=== PATIENT | female | born 1940 | race Caucasian/White ===

== ENCOUNTER 2018-04-24 08:20 | Inpatient (IN) | payer OTHER, BC ==
[2018-03-28 11:43] VITALS: BMI 27.0
--- NOTE | 2018-04-01 08:23 | History and Physical ---
History & Physical Date Apr 01, 2018. Chief Complaint Right Knee Pain History of Present Illness The patient is a 78 year old female with complaints of Right knee pain. She underwent Right total knee replacement by dr iyer January 2007 and tolerated the procedure well. She states that the symptoms have been chronic non-traumatic. No known injury, however pain for over 1yr. The symptoms occur constantly with intermittent worsening. Currently the patient states that the symptoms are severe. The pain is described as aching and throbbing. The symptoms occur continuously. The symptoms are aggravated by ascending stairs, daily activities , descending stairs, first steps while awake, weight bearing and walking. Ember states that the symptoms are relieved by no specific activity. In addition to right knee pain the patient is also experiencing decreased mobility , instability and limping. The patient has had a previous x-ray which shows anatomical alignment with no obvious losoening. Prior NSAIDs include Aleve. Pt. has an Ibuprofen Allergy which limits her NSAID use. Past Medical/Surgical History PAST MEDICAL HISTORY: 1. Thyroid goiter. 2. Acid reflux. 3. High Cholesterol 4. Asthma 5. Anxiety 6. remote smoking history, 6 cigarettes/day x 4 years, quit in 2007. PAST SURGICAL HISTORY: 1. Low back surgery. 2. Right knee surgery. 3. Sinus surgery. 4. Hernia repair. 5. Bowel resection. 6. x4. 7. Appendectomy. 8. Hysterectomy. 9. Right Total Hip replacement 02/2013 Allergies Coded Allergies: Ibuprofen (Verified Allergy, Severe, EYES, FACE, FEET SWELLED-HAS HAD TORADOL W/O PROBLEM, 03/28/18) [place] Seed (Verified Allergy, Severe, THROAT CLOSES, 03/28/18) Cephalosporins (Verified Allergy, Unknown, KEFLEX=RASH, 03/28/18) Shellfish Allergy (Verified Allergy, Unknown, ITCHING, 03/28/18) Shrimp (Verified Allergy, Unknown, LIPS SWELLING SOB, 03/28/18) Codeine (Verified Adverse Reaction, Unknown, N/V, DIZZY, 03/28/18) Hydrocodone (Verified Adverse Reaction, Unknown, N/V, DIZZY, 03/28/18) Quinolones (Verified Adverse Reaction, Unknown, SHOOK ALL OVER (AVELOX) AND HEADACHE, 03/28/18) AVELOX Home Medications Scheduled Atorvastatin (Lipitor), 10 MG PO QPM Cholecalciferol (Vitamin D3), 1 TAB PO PRN Cyclobenzaprine Hcl (Flexeril), 10 MG PO PRN Cyclosporine (Ophth) (Restasis), 1 DROP OP BID Docusate Sodium (Colace), 1 CAP PO HS Esomeprazole Magnesium (Nexium), 40 MG PO QAM Latanoprost (Xalatan 0.005% Oph Caren), 1 DROPS OP HS Naproxen (Aleve), 220 MG PO PRN Paroxetine (Paxil), 20 MG PO QAM Polyethylene Glycol 3350 (Miralax), 1-2 SCOOPS PO 2-3XWEEK Scheduled PRN Albuterol Hfa (Ventolin Hfa), 2 PUFFS INH Q6H PRN for PRN Alprazolam (Xanax), 1 MG PO PRN PRN for ANXIETY Cetirizine/Pseudoephedrine (Zyrtec-D Er 5MG/120MG), 1 TAB PO Q12H PRN Fluticasone Propionate (Nasal) (Flonase Allergy Relief), 1-2 SPRAYS INTNAS BID PRN for RN Physical Examination Skin: warm/dry, no rash Eyes: normal inspection, EOMI, sclerae normal ENT: normal ENT inspection, pharynx normal Head: normocephalic, atraumatic Neck: supple, no adenopathy, trachea midline Respiratory/Chest: lungs clear, normal breath sounds, no respiratory distress Cardiovascular: regular rate, rhythm, no edema, + systolic murmur (Grade II/ systolic ejection murmur) Abdomen / GI: normal bowel sounds, non tender Addiitonal Comments: Right Knee Exam: Physical Exam Exam Findings Details Knee ROM L * Active ROM - Flexion: 120 degrees, Extension: 0 degrees, Factors: normal, Description: active pain free range of motion. Passive ROM - Factors: normal, Description: passive pain free range of motion. Knee ROM R * Active ROM - Flexion: 115 degrees, Extension: 0 degrees, Factors: normal, Description: active pain with range of motion. Passive ROM - Factors: normal, Description: passive pain free range of motion. Strength LE Normal Strength Description - Normal lower extremity: Bilateral. Constitutional Normal No acute distress. Well nourished. Well developed. Knee * Inspection - Gait: normal. Alignment - Right: neutral, Left: neutral. Ecchymosis - Right: none, Left: none. Effusion - Right: negative, Left: negative. Skin - Right: surgical scars, Left: surgical scars. Swelling - Right: mild, Left: mild. Flexibility - Right: normal, Left: normal. Maximum tenderness - Right: diffuse, greatest over medial compartment, Left: non-tender. Patella exam - Crepitation - Right: negative, Left: negative. Patella position - Right: neutral, Left: neutral. Tilt - Right: normal, Left: normal. Knee Normal Inspection - Atrophy - Right: Absent, Left: Absent. Patella exam - Apprehension - Right: Negative, Left: Negative. Valgus stress - Right: Negative , Left: Negative. Varus stress - Right: Negative, Left: Negative. Extensor lag - Right: Normal, Left: Normal. Neurovascular LE Normal Neurovascular examination including reflexes, sensation , and pulses is within normal limits. Right Knee X-Ray: Radiographs reveal a cemented total knee replacement arthroplasty in acceptable position and alignment. No evidence of loosening or loss of fixation is noted. The patella is tracking well. ASSESSMENT: status post cemented posterior stabilized total knee replacement arthroplasty. Diagnosis Painful Right Total Knee Replacement Past medical history as outlined above. Plan of Treatment Further care discussed with patient and at this point in time has failed conservative measures and would like to proceed with Right total knee possible poly change vs possible revision right total knee replacement. patient will undergo routine lab testing including ESR, CRP and bone scan. Patient did not demonstrate much in the way of knee effusion today and therefore aspiration was not performed. Plan on discharge will be home with home health physical therapy. DVT prophalaxis with TEDs, SCDs and will also place on aspirin 81 mg p.o.b.i.d. for a month postop. Patient will have follow up appointment in our office two weeks post op for staple/suture removal and re-evaluation. Patient otherwise has no other questions or concerns.
--- NOTE | 2018-04-01 11:30 | PAT Medication Instructions ---
Service Date Apr 01, 2018. Current Home Medication List Albuterol Hfa (Ventolin Hfa), 2 PUFFS INH Q6H PRN for PRN Alprazolam (Xanax), 1 MG PO PRN PRN for ANXIETY Atorvastatin (Lipitor), 10 MG PO QPM Cetirizine/Pseudoephedrine (Zyrtec-D Er 5MG/120MG), 1 TAB PO Q12H PRN Cholecalciferol (Vitamin D3), 1 TAB PO PRN Cyclobenzaprine Hcl (Flexeril), 10 MG PO PRN Cyclosporine (Ophth) (Restasis), 1 DROP OP BID Docusate Sodium (Colace), 1 CAP PO HS Esomeprazole Magnesium (Nexium), 40 MG PO QAM Fluticasone Propionate (Nasal) (Flonase Allergy Relief), 1-2 SPRAYS INTNAS BID PRN for RN Latanoprost (Xalatan 0.005% Oph Caren), 1 DROPS OP HS Naproxen (Aleve), 220 MG PO PRN Paroxetine (Paxil), 20 MG PO QAM Polyethylene Glycol 3350 (Miralax), 1-2 SCOOPS PO 2-3XWEEK Medication Instructions For Your Scheduled Surgery - Check with surgeon for instructions: Naproxen (Aleve), 220 MG PO PRN - Hold the following medications the morning of surgery: Cetirizine/Pseudoephedrine (Zyrtec-D Er 5MG/120MG), 1 TAB PO Q12H PRN Cholecalciferol (Vitamin D3), 1 TAB PO PRN Cyclobenzaprine Hcl (Flexeril), 10 MG PO PRN Polyethylene Glycol 3350 (Miralax), 1-2 SCOOPS PO 2-3XWEEK - Take the following medications the morning of surgery with a sip of water: Paroxetine (Paxil), 20 MG PO QAM Esomeprazole Magnesium (Nexium), 40 MG PO QAM Fluticasone Propionate (Nasal) (Flonase Allergy Relief), 1-2 SPRAYS INTNAS BID PRN for RN (if needed) Cyclosporine (Ophth) (Restasis), 1 DROP OP BID Albuterol Hfa (Ventolin Hfa), 2 PUFFS INH Q6H PRN for PRN (if needed) Alprazolam (Xanax), 1 MG PO PRN PRN for ANXIETY (if needed) - Take the following medications as scheduled the night before surgery: Polyethylene Glycol 3350 (Miralax), 1-2 SCOOPS PO 2-3XWEEK Latanoprost (Xalatan 0.005% Oph Caren), 1 DROPS OP HS Fluticasone Propionate (Nasal) (Flonase Allergy Relief), 1-2 SPRAYS INTNAS BID PRN for RN (if needed) Docusate Sodium (Colace), 1 CAP PO HS Cyclosporine (Ophth) (Restasis), 1 DROP OP BID Cyclobenzaprine Hcl (Flexeril), 10 MG PO PRN (if needed) Cholecalciferol (Vitamin D3), 1 TAB PO PRN (if needed) Cetirizine/Pseudoephedrine (Zyrtec-D Er 5MG/120MG), 1 TAB PO Q12H PRN (if needed ) Atorvastatin (Lipitor), 10 MG PO QPM Albuterol Hfa (Ventolin Hfa), 2 PUFFS INH Q6H PRN for PRN (if needed) Alprazolam (Xanax), 1 MG PO PRN PRN for ANXIETY (if needed) If you have any questions please call us at [phone] or [phone] or [phone]
[~2018-04-24] VITALS: Ht 154.9 cm; Wt 68.3 kg
[2018-04-24] VITALS (9 sets, daily range): BP systolic 143–172; BP diastolic 69–89; PULSE 57–70; TEMP 36.5–37.2; O2SAT 94–100; Ht 154.9 cm; Wt 68.3 kg
[2018-04-24] MEDS: TRANEXAMIC ACID INJ 1,000 MG x 2 Bags IV SCH ×4 (06:30→12:04)
[~2018-04-24 08:20] MED LIST: ACETAMINOPHEN 500 MG TAB PO SCH; ALPR-411 PO; ATOR10TA82 PO; CEFAZOLIN 1000MG IV PUSH 7.5 ML IV SCH; CETITAB27 PO; CHOL1000 PO; CLINDAMYCIN 600 MG/54 ML D5W IV SCH; CYCL0.052 OP; CYCL10TA6 PO; CeleBREX 200 MG CAP PO SCH; DOCU-94 PO; FLUT0.15 INTNAS; GABAPENTIN 300 MG CAP PO SCH; LACTATED RINGER'S 1000ML 1,000 ML IV SCH; LACTATED RINGER'S 1000ML 500 ML IV SCH; LATA0.009 OP; NAPR1TAB9 PO; NXM/40 PO; PARO1TAB27 PO; POLY335025 PO; ROPIVACAINE 5MG/ML 30 ML 150 MG, BUPIVACAINE 0.5% MPF INJ 30 ML, EpINEphrine HCL INJ 0.... INFIL SCH; VNTHFA/IN INH
[2018-04-24] MEDS ORDERED: BUPIVACAINE 0.25% 30 ML VIAL ONE (08:55)
[2018-04-24] MEDS ORDERED: BUPIVACAINE 0.5 % 5 MG/1 ML PF 10ML VIAL ONE (08:55)
[2018-04-24] MEDS ORDERED: OXYC1CAP5 PO (09:07)
[2018-04-24] MEDS ORDERED: ROPIVACAINE 0.5% 5 MG/ML 30 ML VIAL ONE (10:33)
--- NOTE | 2018-04-24 11:19 | History & Physical Bridge Note ---
H&P Re-Evaluation Bridge Note: I have examined the patient, reviewed the History & Physical and in the interval since the performance of the History & Physical I have noted the following changes of clinical significance: No changes noted
[2018-04-24] MEDS ORDERED: CLINDAMYCIN 600 MG/54 ML D5W IV ONE (11:40)
[2018-04-24] MEDS ORDERED: FENTANYL CITRATE INJ 50 MCG/1 ML 2 ML VIAL ONE (11:41)
[2018-04-24] MEDS ORDERED: MIDAZOLAM HCL 1 MG/ML 2ML VIAL ONE (11:41)
[2018-04-24] MEDS ORDERED: POVIDONE-IODINE OP SOLN 30 ML BTL ONE (11:56)
[2018-04-24] MEDS ORDERED: ORTHO JOINT ANESTHETIC ONE (11:56)
[2018-04-24] MEDS ORDERED: BACITRACIN 50000 UNIT VIAL ONE (11:56)
[2018-04-24] MEDS ORDERED: EpHEDrine SULFATE INJ 50 MG/ML AMP IV PRN (12:30)
[2018-04-24] MEDS ORDERED: ONDANSETRON INJ 2 MG/ML 2 ML VIAL IV PRN ×2 (12:30→14:00)
[2018-04-24] MEDS ORDERED: ATROPINE SULFATE 0.1 MG/ML 5ML SYR IV PRN (12:30)
[2018-04-24] MEDS ORDERED: PHENYLEPHRINE 100MCG/ML 5ML SYR IV PRN (12:30)
[2018-04-24] MEDS ORDERED: HYDROmorphone INJ 2 MG/ML SYR/VIAL IV PRN (12:30)
--- NOTE | 2018-04-24 13:16 | [facility] Post Operative Brief Note ---
Immediate Operative Summary Operative Date Apr 24, 2018. Pre-Operative Diagnosis Painful Right Total Knee Replacement Post-Operative Diagnosis Same as preop Procedure(s) Performed Right Knee [place] Triathlon Poly changed to 11 x 4 and revision patella to a 32 oval patella patella Surgeon Dr. August [employer] Specialist Surgeon(s) Jose Luis Nassar PA-C Estimated Blood Loss 10 ml Findings Consistent with Post-Op Diagnosis Specimens A. Explanted Hardware Anesthesia Type MAC Spinal Regional Complication(s) none Disposition Disposition: Recovery Room / PACU
--- NOTE | 2018-04-24 13:19 | [facility] Operative Report ---
Operative Report Operative Date Apr 24, 2018. Pre-Operative Diagnosis Painful Right Total Knee Replacement Post-Operative Diagnosis Same as preop Procedure(s) Performed Right Knee [place] Triathlon Poly changed to 11 x 4 and revision patella to a 32 oval patella patella Surgeon Dr. August Mine Shifter Surgeon(s) Jose Luis Nassar PA-C Estimated Blood Loss 10 ml Findings Patient presents with painful right total knee with laxity medial lateral collateral ligaments with poly-wear no evidence of obvious loosening of the tibia or femur on radiographs or on bone scan no signs of any type of infectious or inflammatory issues at the time of surgery patient is also noted to have somewhat overstuffed patella which was revised to a 32 oval and probably was changed to 11 x 4 gave excellent stability in flexion extension with flexion Specimens A. Explanted Hardware Anesthesia Type MAC Spinal Regional Complication(s) none Disposition Recovery Room / PACU Indications Patient presents with persistently painful over the last year right total knee from approximately 12 years prior patient had no symptoms until recently when she started feeling her knee felt loose to her clinical examination preoperatively revealed to be evidence of medial lateral collateral ligament laxity that had been a progressive over the last year x-ray as well as bone scan revealed no evidence of loosening of the components nor nor is loosening visualized at the time of the surgery and evidence of ostial lysis was noted. Description of Procedure After proper prepping draping the right lower extremity incision made in the region of the previous extensor midline incision the medial parapatellar incision made the patella was everted lateralward with a synovectomy tricompartmentally was performed the Amena was removed to be evidence of laxity probably the polio was then subsequently trialed was upsized to an 11 x 40 of excellent stability in both flexion and extension mid flexion no evidence of instability was noted the patella was evaluators somewhere to the patellar Isabela as well the nadia was subsequently removed the patella was recut and resized with 32 oh gave excellent tracking with approximately 2 mm thinner patella of the wounds irrigated with copious amounts of sterile saline solution meticulous hemostasis was obtained and maintained subsequently the 11 x 4 Isabela was placed the oval 32 eccentric patella was placed the cemented of the medial proptosis closed #1 Vicryl subcu was closed with 2-0 Vicryl skin was closed with subcutaneous and Versalok suture the patient sterile compressive dressing placed was taken to the recovery room in stable condition Jose Luis PATTERSON was necessary for prepping draping traction wound closure of the fascia subcu and skin was necessary for the case I attest to the content of the Intraoperative Record and any orders documented therein. Any exceptions are noted below.
[2018-04-24] MEDS ORDERED: PROPOFOL IV EMULSION 10 MG/ML 20 ML VIAL ONE (13:49)
[2018-04-24] MEDS ORDERED: BISACODYL 10 MG SUPP PR PRN (14:00)
[2018-04-24] MEDS ORDERED: KETOROLAC TROMETHAMINE 15 MG/ML VIAL IV. PRN (14:00)
[2018-04-24] MEDS ORDERED: ALPRAZOLAM 0.5 MG TAB PO PRN (14:00)
[2018-04-24] MEDS ORDERED: FLUTICASONE PROPIONATE NA SPR 16 GM BTL PRN (14:00)
[2018-04-24] MEDS ORDERED: CYCLOBENZAPRINE HCL 10 MG TAB PO PRN (14:00)
[2018-04-24] MEDS ORDERED: MAGNESIUM HYDROXIDE SUSP 30 ML UDC PO PRN (14:00)
[2018-04-24] MEDS ORDERED: SOD PHOSPHATE/SOD BIPHOSPHATE ENEMA 132 ML BTL PR PRN (14:00)
[2018-04-24] MEDS ORDERED: ZOLPIDEM TARTRATE 5 MG TAB PO PRN (14:00)
[2018-04-24] MEDS ORDERED: MoRPHine SULFATE 4 MG/ML 1 ML CARP\\VIAL IV PRN (14:00)
[2018-04-24] MEDS ORDERED: ALBUTEROL HFA 8 GM INHALER INH PRN (14:00)
[2018-04-24] MEDS ORDERED: ALUMINUM/MAGNESIUM/SIMETH (MAALOX MAX) 30 ML UDC PO PRN (14:00)
--- NOTE | 2018-04-24 14:21 | Anesthesiology Progress Note ---
Anesthesia Post Op Note Date & Time Apr 24, 2018 at 14:21 Vital Signs Pain Intensity: 0 Vital Signs Past 12 Hours Date Time Temp Pulse Resp B/P (MAP) Pulse Ox O2 Delivery O2 Flow Rate FiO2 04/24/18 14:13 67 16 100 04/24/18 14:13 68 16 04/24/18 14:12 138/59 04/24/18 14:08 65 15 98 04/24/18 14:08 66 15 04/24/18 14:06 140/60 04/24/18 14:03 67 14 99 04/24/18 14:03 68 14 04/24/18 14:01 130/59 04/24/18 13:58 78 17 91 04/24/18 13:58 78 17 04/24/18 13:56 130/58 04/24/18 13:54 141/62 04/24/18 13:53 36.9 76 20 141/62 95 Oxymask 5 04/24/18 09:10 36.6 70 16 172/89 Notes Mental Status: alert / awake / arousable, participated in evaluation Pt Amnestic to Procedure: Yes Nausea / Vomiting: adequately controlled Pain: adequately controlled Airway Patency, RR, SpO2: stable & adequate BP & HR: stable & adequate Hydration State: stable & adequate Anesthetic Complications: no major complications apparent
--- NOTE | 2018-04-24 14:25 | DIAGNOSTIC IMAGING REPORT ---
R KNEE 1 OR 2 VIEWS ROUTINE HISTORY: 78 years-old Female AP/LATERAL IN PACU RIGHT KNEE right knee total joint arthroplasty. History of degenerative joint disease. COMPARISON: Bilateral knee radiographs 02/26/2018 TECHNIQUE: 2 views of the right knee FINDINGS: Right knee total joint arthroplasty with prior patellar resurfacing. Bones appear at least mildly demineralized. Surgical drain is in place with expected postsurgical soft tissue swelling and deep tissue air. Satisfactory alignment without acute fracture or retained foreign body. IMPRESSION: Right knee total joint arthroplasty with satisfactory alignment. The above report was generated using voice recognition software. It may contain grammatical, syntax or spelling errors. Electronically signed by: Colt Virk M.D. 04/24/2018 2:24 PM Dictated Date/Time: 04/24/2018 2:22 PM
[2018-04-24] MEDS ORDERED: MoRPHine SULFATE 10 MG/ML CARP/VIAL IV PRN (15:00)
[2018-04-24] MEDS: RESTASIS-ORDER AWAITING ACTION SCH ×2 (16:00→23:41)
[2018-04-24] MEDS: ACETAMINOPHEN 500 MG TAB PO SCH ×2 (16:08→21:55)
[2018-04-24] MEDS: D5W AND 1/2NSS + 20MEQ KCL 1,000 ML IV SCH (17:47)
[2018-04-24] MEDS: CLINDAMYCIN IV 600 MG in DEXTROSE 5% 50ML 50 ML IV SCH (19:50)
[2018-04-24] MEDS ORDERED: CeleBREX 200 MG CAP PO SCH (21:00)
[2018-04-24] MEDS ORDERED: DOCUSATE SODIUM 100 MG CAP PO SCH (21:00)
[2018-04-24] MEDS ORDERED: SENNA 8.6 MG TAB PO SCH (21:00)
[2018-04-24] MEDS ORDERED: ATORVASTATIN 10 MG TAB PO SCH (21:00)
[2018-04-24] MEDS ORDERED: LATANOPROST 0.005% OP SOLN 2.5 ML BTL OP SCH (21:00)
[2018-04-24] MEDS: DOCUSATE SODIUM 100 MG CAP PO SCH (21:53)
[2018-04-24] MEDS: ASPIRIN 81 MG ECTAB PO SCH (21:55)
[2018-04-25] MEDS: D5W AND 1/2NSS + 20MEQ KCL 1,000 ML IV SCH ×2 (03:06→11:00)
[2018-04-25] MEDS: CLINDAMYCIN IV 600 MG in DEXTROSE 5% 50ML 50 ML IV SCH (03:06)
[2018-04-25 04:12] VITALS: BP 138/73; PULSE 54; TEMP 36.8; O2SAT 97
[2018-04-25] MEDS: ACETAMINOPHEN 500 MG TAB PO SCH ×2 (05:46→13:39)
[2018-04-25 06:05] LABS: HEMATOCRIT 28.9 % (37-47); HEMOGLOBIN 9.7 g/dL (12.0-16.0); MEAN CELL VOLUME 93.5 fL (80-100); MEAN CORPUSCULAR HEMOGLOBIN 31.4 pg (25-34); MEAN CORPUSCULAR HGB CONC 33.6 g/dl (32-36); MEAN PLATELET VOLUME 9.9 fL (7.4-10.4); PLATELET COUNT 276 K/uL (130-400); RED CELL DISTRIBUTION WIDTH CV 13.1 % (11.5-14.5); RED CELL DISTRIBUTION WIDTH SD 44.4 fL (36.4-46.3); WHITE BLOOD COUNT 16.16 K/uL (4.8-10.8)
[2018-04-25 06:43] LABS: CALCIUM 7.7 mg/dl (8.5-10.1); CREATININE 1.1 mg/dl (0.60-1.20); POTASSIUM 4.4 mmol/L (3.5-5.1)
--- NOTE | 2018-04-25 07:49 | Orthopedic Progress Note ---
Orthopedic Progress Note Date of Service Apr 25, 2018. Subjective Post OP Day: 1 Reports: feeling well Objective N/V intact, dressing C/D/I (Hemovac in place), toes mobile Date Time Temp Pulse Resp B/P (MAP) Pulse Ox O2 Delivery O2 Flow Rate FiO2 04/25/18 04:25 Room Air 04/25/18 04:12 36.8 54 18 138/73 (94) 97 Room Air 04/24/18 23:53 36.5 57 15 145/70 (95) 98 Room Air 04/24/18 19:50 Room Air 04/24/18 19:04 36.8 63 17 146/69 (94) 94 Room Air 04/24/18 17:41 37.2 68 17 143/76 (98) 95 Room Air 04/24/18 16:40 37.0 66 17 143/69 (93) 100 Nasal Cannula 2.0 04/24/18 16:30 98 Nasal Cannula 2.0 04/24/18 15:38 36.5 63 17 157/76 (103) 98 Nasal Cannula 2.0 04/24/18 15:10 36.9 59 17 147/77 (100) 99 Nasal Cannula 2.0 04/24/18 14:40 36.6 64 15 144/72 (96) 99 Nasal Cannula 2.0 04/24/18 14:40 99 Nasal Cannula 2.0 04/24/18 14:40 99 Nasal Cannula 2.0 04/24/18 14:26 144/67 04/24/18 14:25 64 15 04/24/18 14:25 63 15 99 04/24/18 14:24 64 15 04/24/18 14:24 64 15 99 04/24/18 14:22 36.9 98 Nasal Cannula 3 04/24/18 14:21 135/61 04/24/18 14:19 62 16 04/24/18 14:19 61 16 99 04/24/18 14:16 132/63 04/24/18 14:14 66 13 97 04/24/18 14:14 65 13 04/24/18 14:13 67 16 100 04/24/18 14:13 68 16 04/24/18 14:12 138/59 04/24/18 14:08 65 15 98 04/24/18 14:08 66 15 04/24/18 14:06 140/60 04/24/18 14:03 67 14 99 04/24/18 14:03 68 14 04/24/18 14:01 130/59 04/24/18 13:58 78 17 91 04/24/18 13:58 78 17 04/24/18 13:56 130/58 04/24/18 13:54 141/62 04/24/18 13:53 36.9 76 20 141/62 95 Oxymask 5 04/24/18 09:10 36.6 70 16 172/89 Laboratory Results 24 Hours: Test 04/25/18 05:48 Hematocrit 28.9 % Hemoglobin 9.7 g/dL Prothromb Time International Ratio 1.0 Prothrombin Time 10.4 SECONDS Assessment & Plan Assessment: 78 yo female stable POD #1 s/p right TKA poly change and patella revision Plan: 1. Med management 2. DVT prophylaxis- ASA, SCDs 3. PT/OT 4. D/C planning- home w/ HH vs OPPT
--- NOTE | 2018-04-25 07:51 | Discharge Instructions ---
Discharge Instructions Date of Service Apr 25, 2018. Admission Reason for Admission: Right Knee Osteoarthritis Discharge Discharge Diagnosis / Problem: Painful right TKA Discharge Goals Goal(s): Decrease discomfort, Improve function Activity Recommendations Activity Limitations: as noted below Weightbearing Status: Right weightbearing (as tolerated) . Instructions / Follow-Up Instructions / Follow-Up ACTIVITY RECOMMENDATIONS: SELF CARE INSTRUCTIONS AFTER TOTAL KNEE REPLACEMENT A. You may need to continue a physical therapy program after discharge from the hospital. There are several options available to you. Your doctor will assist you in selecting the best one for you. 1. An out-patient facility 2 to 3 times a week for therapy or home therapy. 2. Continue working on all exercises taught to you in the hospital. Your goals should be to increase bending of your knee to 90 degrees and beyond and to fully straighten your knee. B. You may progress at your own pace from walking with a walker or crutches to a cane; then to no assistive devices. C. Make walking a part of your daily routine. Be up as much as comfortable with rest periods throughout the day. Rest with leg elevation is very important. Use the ice wrap frequently for the first 3-4 weeks. D. There are no restrictions on activities. You may ride in a car, shop, participate in poultry boner and all social activities. E. Wear the long elastic stockings (SUKHJINDER hose) 20 hours a day for 2 weeks after surgery. They can be removed several times a day for laundering and for a bath. F. You may shower, no tub baths until cleared by your doctor. SPECIAL CARE INSTRUCTIONS: VERY IMPORTANT TO READ AND REVIEW A. There are a few signs you need to watch for after you are home. Call [facility] if you notice any of the followin. Increased severe knee pain. Some pain is expected especially when you exercise. 2. Increased swelling in your leg or knee; pain or swelling of the calf muscle in either lower leg. 3. Any fluid drainage from the incision. 4. Shortness of breath or chest pain. B. Please call [facility] at if you have any concerns or questions about your operation or recovery. The doctor or his nurse will return your call promptly. C. You must take antibiotics before dental work, bladder, bowel or other surgery. Your doctor will provide you with a permanent care to carry describing this precaution. IMPORTANT: * REMEMBER TO TAKE ASPIRIN, 81 MG, TWICE DAILY FOR 4 WEEKS UNLESS OTHERWISE DIRECTED. THIS IS YOUR BLOOD THINNER. * HIGH RISK PATIENTS MAY BE PRESCRIBED A STRONGER BLOOD THINNER. THIS WILL BE PROVIDED AT DISCHARGE. * CALL IF INCREASED PAIN, REDNESS, DRAINAGE OR FEVER GREATER THAT 101. * WEAR SUKHJINDER HOSE 20 HOURS PER DAY FOR 2 WEEKS. * DERMABOND Prineo- This is a mesh tape dressing that is covered with glue. It should remain in place until the incision is properly healed, usually 10-14 days. This dressing is designed to naturally slough off. You may trim the excess mesh tape as it peels off. Incision may be briefly wet in a shower. Dry immediately by blotting with a clean, dry towel. Do not bath or swim until instructed by your doctor. Do not scratch, rub, or pick at the dressing. Do not apply any topical ointments or lotions until dressing is completely removed and/or instructed by your doctor. There may be a small piece of suture material at one end of your incision. Do not pull or trim this. If it is bothersome or catching on clothing, you may cover it with a band-aid. . * REMOVE YOUR JANE BANDAGE/DRESSING ON SUNDAY. SEE THE ABOVE NOTE FOR YOUR PRINEO DERMABOND DRESSING. FOLLOW UP VISIT: If appointment is not already scheduled: Please call [facility] to make a follow-up appointment for 2 weeks after your surgery at . Current Hospital Diet Patient's current hospital diet: Regular Diet Discharge Diet Recommended Diet: Regular Diet Procedures Procedures Performed: Right Knee [place] Triathlon Poly changed to 11 x 4 and revision patella to a 32 oval patella patella Pending Studies Studies pending at discharge: no Laboratory Results Hemoglobin A1c Test 04/01/18 11:45 Range/Units Estimated Average Glucose 126 mg/dl Hemoglobin A1c 6.0 H 4.5-5.6 % Medical Emergencies . Who to Call and When: Medical Emergencies: If at any time you feel your situation is an emergency, please call 911 immediately. . Non-Emergent Contact Non-Emergency issues call your: Surgeon Call Non-Emergent contact if: temperature is above 101.5, your pain is not controlled, wound has increased drainage, wound has increased redness . "Provider Documentation" section prepared by Ryder Chandra PA-C. . [facility] Drug Monitoring Program Search Results: patient reviewed within database, no issues identified
[2018-04-25 07:55] VITALS: BP_SYST 157; BP_SYST 166; BP_DIAS 70; BP_DIAS 78; PULSE 60; TEMP 36.5; O2SAT 97
[2018-04-25] MEDS: RESTASIS-ORDER AWAITING ACTION SCH (08:00)
[2018-04-25] MEDS ORDERED: PAROXETINE 20 MG TAB PO SCH (09:00)
[2018-04-25] MEDS ORDERED: MULTIVITAMIN TAB PO SCH (09:00)
[2018-04-25] MEDS ORDERED: PANTOprazole SOD 40 MG TAB PO SCH (09:00)
--- NOTE | 2018-04-25 09:01 | Anesthesiology Progress Note ---
Anesthesia Post Op Note Date & Time Apr 25, 2018 at 09:00 Vital Signs Pain Intensity: 3.0 Vital Signs Past 12 Hours Date Time Temp Pulse Resp B/P (MAP) Pulse Ox O2 Delivery O2 Flow Rate FiO2 04/25/18 07:55 36.5 60 16 166/78 (107) 97 Room Air 157/70 (99) 04/25/18 07:10 Room Air 04/25/18 04:25 Room Air 04/25/18 04:12 36.8 54 18 138/73 (94) 97 Room Air 04/24/18 23:53 36.5 57 15 145/70 (95) 98 Room Air Notes Mental Status: alert / awake / arousable, participated in evaluation Pt Amnestic to Procedure: Yes Nausea / Vomiting: adequately controlled Pain: adequately controlled Airway Patency, RR, SpO2: stable & adequate BP & HR: stable & adequate Hydration State: stable & adequate Neuraxial Anesthesia: sensory block resolved Anesthetic Complications: no major complications apparent
[2018-04-25] MEDS: DOCUSATE SODIUM 100 MG CAP PO SCH (09:07)
[2018-04-25] MEDS: ASPIRIN 81 MG ECTAB PO SCH (09:08)
[2018-04-25 11:54] VITALS: BP 129/70; PULSE 69; TEMP 37.1; O2SAT 99
[2018-04-25] MEDS: OXYCODONE HCL IR 5 MG TAB (IMMEDIATE RELEASE) PO PRN ×2 (11:57→12:47)
[2018-04-25] MEDS ORDERED: CLB200 PO (14:13)
[2018-04-25] MEDS ORDERED: RXC5 PO (14:13)
[2018-04-25] MEDS ORDERED: ASPI-461 PO (14:13)
[2018-04-25] MEDS ORDERED: ACET-24 PO (14:13)
[2018-04-25 14:19] VITALS: BP 129/70; PULSE 69; TEMP 37.1; O2SAT 99
--- NOTE | 2018-04-26 07:10 | Discharge Summary ---
Orthopedic Discharge Summary Admission Date/Reason Apr 24, 2018 at 08:35 Right Knee Osteoarthritis. Discharge Date/Disposition Apr 25, 2018 Home with services Diagnosis Principal Diagnosis: painful right total knee replacement Secondary Diagnoses/Problems: Past Medical/Surgical History PAST MEDICAL HISTORY: 1. Thyroid goiter. 2. Acid reflux. 3. High Cholesterol 4. Asthma 5. Anxiety 6. remote smoking history, 6 cigarettes/day x 4 years, quit in 2007. Procedure(s) Performed Right Knee Tammie Triathlon Poly changed to 11 x 4 and revision patella to a 32 oval patella patella Consultations NONE Medication Reconciliation New Medications: Acetaminophen (Sb Non-Aspirin Extra Stre) 500 Mg Tab 1000 MG PO Q8 for 21 Days, #126 TAB Aspirin (Aspirin) 81 Mg Tab 81 MG PO BID for 30 Days, #60 TAB Celecoxib (Celebrex) 200 Mg Cap 200 MG PO BID, #30 CAP Oxycodone HCl (Oxycodone HCl) 5 Mg Tab 5 MG PO Q4H PRN for Pain, #30 TAB Continued Medications: Albuterol Hfa (Ventolin Hfa) 200 Puffs/34309 Mcg Aers 2 PUFFS INH Q6H PRN for PRN, #1 INHALER Alprazolam (Xanax) 0.5 Mg Tab 1 MG PO PRN PRN for ANXIETY, TAB Atorvastatin (Lipitor) 10 Mg Tab 10 MG PO QPM Cetirizine/Pseudoephedrine (Zyrtec-D Er 5MG/120MG) Tabcr 1 TAB PO Q12H PRN, TAB Cyclobenzaprine Hcl (Flexeril) 10 Mg Tab 10 MG PO PRN, #21 TAB Cyclosporine (Ophth) (Restasis) 0.05 % Emu 1 DROP OP BID, BTL Docusate Sodium (Colace) 100 Mg Cap 1 CAP PO HS for 30 Days, CAP Esomeprazole Magnesium (Nexium) 40 Mg Capcr 40 MG PO QAM, 0 Refills Fluticasone Propionate (Nasal) (Flonase Allergy Relief) 50 Mcg/Act Spr 1-2 SPRAYS INTNAS BID PRN for RN Latanoprost (Xalatan 0.005% Oph Caren) 0.005 % Caren 1 DROPS OP HS for 90 Days, #7.5 ML 3 Refills Paroxetine (Paxil) 20 Mg Tab 20 MG PO QAM, TAB Polyethylene Glycol 3350 (Miralax) 1 Pow Pow 1-2 SCOOPS PO 2-3XWEEK Discontinued Medications: Naproxen (Aleve) 220 Mg Tab 220 MG PO PRN, TAB Oxycodone Hcl (Oxycodone Hcl) 5 Mg Cap 1 CAP PO TID PRN for Pain for 30 Days, #90 CAP Admission Physical Exam As per Admitting History & Physical. Hospital Course Patient was a same day admission after undergoing a successful right knee poly exchange and patella revision. she tolerated the procedure well. Post- operatively, her activity was progressed and well tolerated. Please refer to daily progress notes and PT notes for complete details. After exam on 04/25/18, patient felt to be stable for discharge home with home PT. Patient will f/u in the office in 2 weeks for further evaluation including x-rays and incision check , sooner if having any issues or concerns. Below are pertinent labs/studies during their hospital stay: Test 04/25/18 05:48 Range/Units White Blood Count 16.16 4.8-10.8 K/uL Red Blood Count 3.09 4.2-5.4 M/uL Hemoglobin 9.7 12.0-16.0 g/dL Hematocrit 28.9 37-47 % Mean Corpuscular Volume 93.5 80-100 fL Mean Corpuscular Hemoglobin 31.4 25-34 pg Mean Corpuscular Hemoglobin Concent 33.6 32-36 g/dl RDW Standard Deviation 44.4 36.4-46.3 fL RDW Coefficient of Variation 13.1 11.5-14.5 % Platelet Count 276 130-400 K/uL Mean Platelet Volume 9.9 7.4-10.4 fL Prothrombin Time 10.4 9.0-12.0 SECONDS Prothromb Time International Ratio 1.0 0.9-1.1 Sodium Level 131 136-145 mmol/L Potassium Level 4.4 3.5-5.1 mmol/L Chloride Level 102 98-107 mmol/L Carbon Dioxide Level 23 21-32 mmol/L Anion Gap 6.0 3-11 mmol/L Blood Urea Nitrogen 17 7-18 mg/dl Creatinine 1.10 0.60-1.20 mg/dl Est Creatinine Clear Calc Drug Dose 37.2 ml/min Estimated GFR () 55.7 Estimated GFR (Non- 48.1 BUN/Creatinine Ratio 15.4 10-20 Random Glucose 144 70-99 mg/dl Calcium Level 7.7 8.5-10.1 mg/dl Last Vital Signs Documentation Date Time Temp Pulse Resp B/P (MAP) Pulse Ox O2 Delivery O2 Flow Rate FiO2 04/25/18 14:19 37.1 69 16 99 Room Air 04/25/18 11:54 129/70 (89) 04/24/18 16:40 2.0 Discharge Instructions Please refer to the electronic Patient Visit Report (Discharge Instructions) for additional information.
== END 2018-04-25 15:20 | disposition home health service (06) | DRG 468 ==
LOC: C.ACU 08:20 → C.3E 08:35 → ENRESERV 14:17
PROVIDERS: ADMIT Orthopaedic Surgery; ATTEND Orthopaedic Surgery
PROC: 0SWC0JC Revision of Synthetic Substitute in Right Knee Joint, Patellar Surface, Open Approach (ICD-10-PCS; principal; 2018-04-24 11:00)
PROC: 0SW Lower Joints, Revision (ICD-10-PCS; principal; 2018-04-24 11:00)
DX: T84.84XA Pain due to internal orthopedic prosthetic devices, implants and grafts, initial encounter (principal); Y83.1 Surgical operation with implant of artificial internal device as the cause of abnormal reaction of the patient, or of later complication, without mention of misadventure at the time of the procedure; Z96.651 Presence of right artificial knee joint; K21.9 Gastro-esophageal reflux disease without esophagitis; E78.00 Pure hypercholesterolemia, unspecified; F41.9 Anxiety disorder, unspecified; J45.909 Unspecified asthma, uncomplicated; H40.9 Unspecified glaucoma; Z87.891 Personal history of nicotine dependence; Z96.641 Presence of right artificial hip joint; Z79.899 Other long term (current) drug therapy; Z88.1 Allergy status to other antibiotic agents; Z88.5 Allergy status to narcotic agent; Z88.6 Allergy status to analgesic agent; Z91.013 Allergy to seafood; Z91.018 Allergy to other foods

== ENCOUNTER 2018-12-03 06:14 | Inpatient (IN) ==
--- NOTE | 2018-11-08 13:59 | History & Physical Report ---
Date of Service November 08, 2018 Date of Surgery: 12-03-18 Assessment & Plan (1) Arthritis of knee, left: Risks and benefits of procedure discussed in detail today, patient would like to proceed with a Left total knee replacement @ [facility] as scheduled. will obtain medical clearance prior to surgery as well as obtain PATs at [facility]. Will place on ASA 81mg po bid x 1 month post op, f/u 2 weeks post op for routine post -operative care and xray, sooner if having any problems. will make arrangements for [facility] PT at the time of discharge. History of Present Illness Chief Complaint: left knee pain Primary Care Provider: Akshat Moses Ms Inman is a 78 year old female who is here for a follow up of left knee pain , presents for pre op evaluation prior to left total knee replacement. She complains of pain, crepitus and instability on the left side. Patient is here today for pre-op appt for left TKA for 12/03/[address] August at [facility]. Patient' s PCP is Dr. Moses. She has a walker at home. She has cortisone and visco injections. She is taking OTC pain medication Tylenol ES as needed. She states that the symptoms have been chronic non-traumatic. The symptoms occur intermittently. Currently the patient states that the symptoms are moderate- severe. The pain is described as aching, throbbing and burning. The symptoms occur intermittently. She rates her current pain as 7/10. The symptoms are aggravated by ascending stairs, descending stairs, daily activities, walking and weight bearing. Ember states that the symptoms are relieved by no specific activity. In addition to left knee pain the patient is also experiencing joint pain, instability and limping. Allergies Allergy/AdvReac Type Severity Reaction Status Date / Time sunflower seed Allergy Severe THROAT Verified 10/29/18 12:04 FEELS SCRATCHY Cephalosporins Allergy Unknown KEFLEX=RASH Verified 10/29/18 11:32 ibuprofen Allergy Unknown EYES, Verified 10/29/18 11:32 FACE, FEET SWELLED-HAS HAD TORADOL W/O PROBLEM shellfish derived Allergy Unknown ITCHING Verified 10/29/18 11:32 shrimp Allergy Unknown LIPS Verified 10/29/18 11:32 SWELLING SOB codeine AdvReac Unknown N/V, DIZZY Verified 10/29/18 11:32 hydrocodone AdvReac Unknown N/V, DIZZY Verified 10/29/18 11:32 Quinolones AdvReac Unknown SHOOK ALL Verified 10/29/18 12:06 OVER/SEVERE HEADACHE WITH AVELOX AND LEVAQUIN Home Medications Home Medications Medication Instructions Recorded Confirmed Type acetaminophen [Tylenol Extra 1,000 mg PO Q6H PRN 10/29/18 10/29/18 History Strength] albuterol sulfate 2 puff INHALATION Q6H PRN 10/29/18 10/29/18 History alprazolam 1 mg PO TID PRN 10/29/18 10/29/18 History celecoxib [Celebrex] 200 mg PO QPM 10/29/18 10/29/18 History cetirizine-pseudoephedrine 1 tab PO DAILY PRN 10/29/18 10/29/18 History [Zyrtec-D] cyclosporine [Restasis] 1 drp OPHTHALMIC (EYE) Q12H 10/29/18 10/29/18 History diltiazem HCl [Cardizem] 120 mg PO QAM 10/29/18 10/29/18 History docusate sodium 100 mg PO HS 10/29/18 10/29/18 History esomeprazole magnesium [Nexium] 40 mg PO QAM 10/29/18 10/29/18 History fluticasone [Flonase Allergy 2 spray INTRANASAL DAILY PRN 10/29/18 10/29/18 History Relief] latanoprost (PF) 1 drp OPHTHALMIC (EYE) HS 10/29/18 10/29/18 History paroxetine HCl 20 mg PO QAM 10/29/18 10/29/18 History polyethylene glycol 3350 [Miralax] 17 g PO DAILY PRN 10/29/18 10/29/18 History Past Med/Surg History Medical History Anxiety Asthma Bronchitis 08/2018 Cardiac murmur Depression GERD (gastroesophageal reflux disease) Glaucoma Hyperlipidemia NO MEDS AT PRESENT Hypertension Nausea and vomiting after administration of anesthetic agent Osteoarthritis Surgical History Fusion of spine L4- S1 H/O knee surgery X 2-PARTIAL REPLACEMENT AND REVISION History of arthroscopy LEFT KNEE History of bowel resection History of section X 4 History of colonoscopy History of esophagogastroduodenoscopy (EGD) History of total hip arthroplasty RIGHT FOR AVASCULAR NECROSIS Family History Aunt Family history of diabetes mellitus Mother Family history of reaction to anesthesia SLOW TO WAKE UP, LOW BLOOD PRESSURE Social History Current Living Situation: Spouse Other Information That Helps Us Care for You: No Feels Safe at Home: Yes Safety Concerns: Feels Safe At This Time Smoking Status: Current every day smoker Tobacco Type: cigarettes Cigarettes per Day: 1 PACK PER 3 DAYS Do You Dip or Chew Tobacco: No Second Hand Exposure: No Hx Alcohol Use: Yes Alcohol Intake Frequency: holidays/special occasions only Hx Substance Use: No Beliefs That Will Affect Care: None Preferred Language: Estonian Communication Ability: Effective Supervisor Dumping Required: No Review of Systems All systems reviewed & are unremarkable except as noted in HPI & below Constitutional: no fever, no chills and no sweats Respiratory: no cough and no dyspnea Cardiovascular: no chest pain, no dyspnea and no orthopnea Gastrointestinal: no abdominal pain, no nausea and no vomiting Musculoskeletal: as per Subjective / HPI Integumentary: no rash and no lesions Physical Exam 2 Vital Signs (Past 24 Hours): Ht: 5ft 1in Wt: 65.77kg BP: 148/88 Pulse: 82 Constitutional: WD/WN, vitals as above no acute distress Respiratory: normal respiratory effort, lungs clear to auscultation no respiratory distress and does not use accessory muscles Cardiovascular: Rate/Rhythm: regular rate and regular rhythm Heart Sounds: + murmur (Grade II/ systolic murmur) Gastrointestinal (Abdomen): normal bowel sounds, soft, nontender, no hepatosplenomegaly Musculoskeletal: Left Knee Physical Exam Patient ambulates with a limp, overall varus alignment, no atrophy or ecchymosis noted, mild suprapatellar effusion, maximum tenderness medial joint line and diffuse, negative patellar apprehension , mild crepitation with motion , francisca's Negative, Perez's - lateral positive, Perez's - medial positive, Posterior drawer- Negative, Anterior drawer Negative, Valgus stress Negative, Varus stress Negative, no Extensor lag, Pain with Active range of motion, also passive painful ROM, Range of motion 0/3/110. No pain with active/ passive ROM of ankle. Lower Extremity Strength normal. Lower Extremity Neuro- vascular is normal Results & Data Diagnostic Findings Left Knee X-ray dated 10-04-18: left knee series confirm advanced degenerative changes to the left knee, greatest medial compartments and patellofemoral joint, showing joint space narrowing, osteophyte formation and subchondral sclerosis. no acute bony pathology noted.
--- NOTE | 2018-11-08 15:04 | PAT Medication Instructions ---
Medication Instructions Date of Service November 08, 2018 Home Medications acetaminophen [Tylenol Extra 1,000 mg PO Q6H PRN albuterol sulfate 2 puff INHALATION Q6H PRN alprazolam 1 mg PO TID PRN celecoxib [Celebrex] 200 mg PO QPM cetirizine-pseudoephedrine 1 tab PO DAILY PRN cyclosporine [Restasis] 1 drp OPHTHALMIC (EYE) Q12H diltiazem HCl [Cardizem] 120 mg PO QAM docusate sodium 100 mg PO HS esomeprazole magnesium [Nexium] 40 mg PO QAM fluticasone [Flonase Allergy 2 spray INTRANASAL DAILY PRN latanoprost (PF) 1 drp OPHTHALMIC (EYE) HS paroxetine HCl 20 mg PO QAM polyethylene glycol 3350 [Miralax] 17 g PO DAILY PRN ASK your surgeon for instructions celecoxib [Celebrex] 200 mg PO QPM DO NOT take the morning of surgery cetirizine-pseudoephedrine 1 tab PO DAILY PRN polyethylene glycol 3350 [Miralax] 17 g PO DAILY PRN Take morning of surgery With a small sip of water, OTHERWISE NOTHING TO EAT OR DRINK AFTER MIDNIGHT: acetaminophen [Tylenol Extra 1,000 mg PO Q6H PRN (okay to take up to 4 hours prior to surgery if needed) albuterol sulfate 2 puff INHALATION Q6H PRN (use if needed; please bring with you to hospital day of surgery if possible) alprazolam 1 mg PO TID PRN (if needed) cyclosporine [Restasis] 1 drp OPHTHALMIC (EYE) Q12H diltiazem HCl [Cardizem] 120 mg PO QAM esomeprazole magnesium [Nexium] 40 mg PO QAM fluticasone [Flonase Allergy 2 spray INTRANASAL DAILY PRN (if needed) paroxetine HCl 20 mg PO QAM Take evening before surgery acetaminophen [Tylenol Extra 1,000 mg PO Q6H PRN (if needed) albuterol sulfate 2 puff INHALATION Q6H PRN (if needed) alprazolam 1 mg PO TID PRN (if needed) cetirizine-pseudoephedrine 1 tab PO DAILY PRN (if needed) cyclosporine [Restasis] 1 drp OPHTHALMIC (EYE) Q12H docusate sodium 100 mg PO HS fluticasone [Flonase Allergy 2 spray INTRANASAL DAILY PRN (if needed) latanoprost (PF) 1 drp OPHTHALMIC (EYE) HS polyethylene glycol 3350 [Miralax] 17 g PO DAILY PRN (if needed) Other Notes If you have any questions please call us at [phone] or [phone] or [phone] or [phone]
--- NOTE | 2018-11-08 15:57 | Anesthesiology Consultation ---
Date of Service November 08, 2018 Assessment & Plan (1) Encounter for pre-operative examination: Plan: CHECK BSG AM DOS Chart Review Chart Review: Acceptable Risk for Surgery and Patient seen in Pre Admission Testing Teaching & Discussion Instructed NPO after midnight before surgery, except medications with 15 cc of water. Medication instructions provided according to the PAT guidelines. History Surgery Operation Date: 12/03/18 10:05 Proposed Procedures p Left Total Knee Arthroplasty - Varghese August DO Height/Weight Height: 5 ft 1 in Weight: 73.6 kg Allergies Allergy/AdvReac Type Severity Reaction Status Date / Time sunflower seed Allergy Severe THROAT Verified 10/29/18 12:04 FEELS SCRATCHY Cephalosporins Allergy Unknown KEFLEX=RASH Verified 10/29/18 11:32 ibuprofen Allergy Unknown EYES, Verified 10/29/18 11:32 FACE, FEET SWELLED-HAS HAD TORADOL W/O PROBLEM shellfish derived Allergy Unknown ITCHING Verified 10/29/18 11:32 shrimp Allergy Unknown LIPS Verified 10/29/18 11:32 SWELLING SOB codeine AdvReac Unknown N/V, DIZZY Verified 10/29/18 11:32 hydrocodone AdvReac Unknown N/V, DIZZY Verified 10/29/18 11:32 Quinolones AdvReac Unknown SHOOK ALL Verified 10/29/18 12:06 OVER/SEVERE HEADACHE WITH AVELOX AND LEVAQUIN Medications Home Medications Medication Instructions Recorded Confirmed Last Taken acetaminophen [Tylenol Extra 1,000 mg PO Q6H PRN 10/29/18 10/29/18 Unknown Strength] albuterol sulfate 2 puff INHALATION Q6H PRN 10/29/18 10/29/18 Unknown alprazolam 1 mg PO TID PRN 10/29/18 10/29/18 Unknown celecoxib [Celebrex] 200 mg PO QPM 10/29/18 10/29/18 Unknown cetirizine-pseudoephedrine 1 tab PO DAILY PRN 10/29/18 10/29/18 Unknown [Zyrtec-D] cyclosporine [Restasis] 1 drp OPHTHALMIC (EYE) Q12H 10/29/18 10/29/18 Unknown diltiazem HCl [Cardizem] 120 mg PO QAM 10/29/18 10/29/18 Unknown docusate sodium 100 mg PO HS 10/29/18 10/29/18 Unknown esomeprazole magnesium [Nexium] 40 mg PO QAM 10/29/18 10/29/18 Unknown fluticasone [Flonase Allergy 2 spray INTRANASAL DAILY PRN 10/29/18 10/29/18 Unknown Relief] latanoprost (PF) 1 drp OPHTHALMIC (EYE) HS 10/29/18 10/29/18 Unknown paroxetine HCl 20 mg PO QAM 10/29/18 10/29/18 Unknown polyethylene glycol 3350 [Miralax] 17 g PO DAILY PRN 10/29/18 10/29/18 Unknown Past Medical History Medical History Anxiety Aortic stenosis MILD per 2018 echo Asthma Cardiac murmur Echo 04/19/18 showed mild Depression GERD (gastroesophageal reflux disease) Glaucoma Hyperlipidemia NO MEDS AT PRESENT Hypertension Nausea and vomiting after administration of anesthetic agent Obesity Osteoarthritis Pulmonary hypertension Mild per 2018 echo Past Family History Family History Aunt Family history of diabetes mellitus Mother Family history of reaction to anesthesia SLOW TO WAKE UP, LOW BLOOD PRESSURE Past Surgical History Surgical History Fusion of spine L4- S1 H/O knee surgery X 2-PARTIAL REPLACEMENT AND REVISION History of arthroscopy LEFT KNEE History of bowel resection 2/2 bowel obstruction History of section X 4 History of colonoscopy History of esophagogastroduodenoscopy (EGD) History of total hip arthroplasty RIGHT FOR AVASCULAR NECROSIS Past Anesthesia History No Hx of Anesthesia Complications and No Family Hx of Anesthesia Complications Patient had TKA revision with SAB 04/2018. No issues noted with SAB (pt has h/o spinal fusion L4-S1) History of PONV Yes (single episode) Motion Sickness Screening History of Motion Sickness: No Social History Smoking Status: Current every day smoker tobacco type: cigarettes Smoking cigarettes per day: 1 PACK PER 3 DAYS Do You Dip or Chew Tobacco: No Hx Alcohol Use: Yes alcohol intake frequency: holidays/special occasions only Hx Substance Use: No substance use type: does not use Exercise / Class Metabolic Activity III < 4 Walking/Shop/Light housework (Denies CP or SOB with stairs, just very limited by knee pain) Review of Systems Pt denies any recent chest pain, shortness of breath, palpitations, cough, fever or URI. Physical Exam Vital Signs BP: 130/75 P: 72bpm SPO2: 96% RA T: 97.8 F R: 16 ENMT Mouth: + dental restorations (sveral caps and crowns, one temporary crown) and + small oral opening; no loose teeth Thyromental Distance: > or= 3.5 Finger Breadths (3.5) Mallampati Class: II Neck + short neck; neck extension not limited goiter Respiratory normal respiratory effort Auscultation: lungs clear to auscultation bilaterally Cardiovascular Rate/Rhythm: regular rate and regular rhythm Heart Sounds: + murmur (II/ EMILI RSB, no radiation) Vessels: no carotid bruit Testing Electrocardiogram Date: 04/01/18 Findings: + NSR @ (63) Possible inferior infarct, age undetermined. No change from 2012 EKG. Chest X-Ray Date: 04/01/18 Findings: + NAD Echocardiogram Date: 04/19/18 EF: 60% Left ventricle is normal in size and contractility with mild to moderate concentric hypertrophy. Mild mitral valve annular calcification. Degenerative aortic valve with mild stenosis. Mean gradient 16 mmHg. JAMES 1.05 cm. Trace tricuspid regurg with mild pulmonary hypertension, RVSP 32 mmHg. Laboratory Results 11/08/18 16:00 11/08/18 16:00 Blood Type O Positive 11/08/18 16:00 Antibody Screen NEGATIVE 11/08/18 16:00 PT 10.1 Seconds (9.0-12.0) 11/08/18 16:00 INR 1.0 (0.9-1.1) 11/08/18 16:00 APTT 28.9 Seconds (21.0-31.0) 11/08/18 16:00 Hemoglobin A1c 5.9 % (4.5-5.6) H 11/08/18 16:00 Urine Color Yellow 11/08/18 16:00 Urine Appearance Clear (Clear) 11/08/18 16:00 Urine pH 6.0 (4.5-7.5) 11/08/18 16:00 Ur Specific [place] 1.010 (1.000-1.030) 11/08/18 16:00 Urine Protein Negative (Negative) 11/08/18 16:00 Urine Glucose (UA) Negative (Negative) 11/08/18 16:00 Urine Ketones Negative (Negative) 11/08/18 16:00 Urine Nitrite Negative (Negative) 11/08/18 16:00 Ur Leukocyte Esterase 2+ (Negative) H 11/08/18 16:00 Urine WBC (Auto) 10-30 /hpf (0-5) H 11/08/18 16:00 Urine RBC (Auto) 0-4 /hpf (0-4) 11/08/18 16:00 U Hyaline Cast (Auto) 1-5 /lpf (0-5) 11/08/18 16:00 U Epithel Cells (Auto) >30 /lpf (0-5) H 11/08/18 16:00 Urine Bacteria (Auto) Negative (Negative) 11/08/18 16:00
[2018-11-08 16:23] LABS: Basophils # (auto) 0.05 K/uL (0-0.2); Basophils % (auto) 0.5 %; Eosinophils # (auto) 0.24 K/uL (0-0.5); Eosinophils % (auto) 2.3 %; Hematocrit (blood only) 34.7 % (37-47); Hemoglobin 11.6 g/dL (12.0-16.0); Immature Granulocytes # (auto) 0.01 K/uL (0.00-0.02); Immature Granulocytes % (auto) 0.1 %; Lymphocytes # (auto) 3.07 K/uL (1.2-3.4); Lymphocytes % (auto) 29.8 %; Mean Corpuscular Hgb Conc 33.4 g/dL (32-36); Mean Corpuscular Volume 94.8 fL (80-100); Monocytes # (auto) 0.55 K/uL (0.11-0.59); Monocytes % (auto) 5.3 %; Neutrophils # (auto) 6.39 K/uL (1.4-6.5); Platelet Count 342 K/uL (130-400); RDW Coefficient of Variation 13.1 % (11.5-14.5); RDW Standard Deviation 45.4 fL (36.4-46.3); Red Blood Count 3.66 M/uL (4.2-5.4); White Blood Count 10.31 K/uL (4.8-10.8)
[2018-11-08 16:31] LABS: Appearance Urine Clear (Clear); Bacteria Urine Automated Negative (Negative); Bilirubin Urine Negative (Negative); Blood Urine Negative (Negative); Color Urine Yellow; Epithelial Cell Urine Auto >30 /lpf (0-5); Glucose Urine UA Negative (Negative); Ketones Urine Negative (Negative); Leukocyte Esterase Urine 2+ (Negative); Nitrite Urine Negative (Negative); Protein Urine Negative (Negative); RBC Urine Automated 0-4 /hpf (0-4); Urobilinogen Urine Negative (Negative)
[2018-11-08 16:32] LABS: Albumin Level 3.8 gm/dl (3.4-5.0); BUN Creatinine Ratio 12.8 (10-20); Calcium 8.9 mg/dl (8.5-10.1); Creatinine Clr Calc Pharmacy 36.1 ml/min; Est GFR (African American) 51.2; Est GFR (Non-African American) 44.1; Potassium 3.5 mmol/L (3.5-5.1)
[2018-11-08 16:41] LABS: Partial Thromboplastin Ratio 1.1; Partial Thromboplastin Time 28.9 Seconds (21.0-31.0); Prothrombin Time 10.1 Seconds (9.0-12.0)
[2018-11-09 06:57] LABS: Estimated Average Glucose 123 mg/dl; Hemoglobin A1C 5.9 % (4.5-5.6)
[~2018-12-03 06:14] MED LIST changes: -ALPR-411 PO; -ATOR10TA82 PO; +CEFAZOLIN 1000MG 1,000 MG/7.5 ML SYR IV SCH; -CEFAZOLIN 1000MG IV PUSH 7.5 ML IV SCH; -CETITAB27 PO; -CHOL1000 PO; +CLINDAMYCIN 600 MG/54 ML BAG IV SCH; -CLINDAMYCIN 600 MG/54 ML D5W IV SCH; -CYCL0.052 OP; -CYCL10TA6 PO; -DOCU-94 PO; +FAMOTIDINE 20 MG TAB PO SCH; -FLUT0.15 INTNAS; -GABAPENTIN 300 MG CAP PO SCH; +GABAPENTIN 300 MG PO SCH; -LACTATED RINGER'S 1000ML 1,000 ML IV SCH; -LACTATED RINGER'S 1000ML 500 ML IV SCH; -LATA0.009 OP; +LR 500ML BOLUS, THEN 15ML/HR IV SCH; -NAPR1TAB9 PO; -NXM/40 PO; -PARO1TAB27 PO; -POLY335025 PO; +ROPIVACAINE 0.5% HCL/PF 150 MG, BUPIVACAINE 0.5% MPF 30 ML, EPINEPHrine 30MG/30ML (OR U... INFIL SCH; -ROPIVACAINE 5MG/ML 30 ML 150 MG, BUPIVACAINE 0.5% MPF INJ 30 ML, EpINEphrine HCL INJ 0.... INFIL SCH; +TRANEXAMIC ACID 1,000 MG **IV Pre-op IV SCH; -VNTHFA/IN INH; +dexAMETHasone 4 MG TAB PO SCH
[2018-12-03] MEDS ORDERED: TRANEXAMIC ACID 1,000 MG **IV Intra-op IV SCH (06:30)
[2018-12-03] MEDS ORDERED: ROPIVACAINE 0.5% 5 MG/ML 30 ML VIAL ONE (06:38)
[2018-12-03] MEDS ORDERED: BUPIVACAINE 0.5 % 5 MG/1 ML PF 10ML VIAL ONE (06:38)
[2018-12-03] MEDS ORDERED: PROPOFOL IV EMULSION 10 MG/ML 20 ML VIAL IV ONE (06:58)
[2018-12-03] MEDS ORDERED: MIDAZOLAM HCL 1 MG/ML 2ML VIAL ONE (06:58)
[2018-12-03] MEDS ORDERED: fentaNYL citrate 100 MCG/2 ML VIAL ONE (06:58)
--- NOTE | 2018-12-03 07:01 | History & Physical Bridge Note ---
Date of Service December 03, 2018 History & Physical Bridge Note I have examined the patient, reviewed the History & Physical and in the interval since the performance of the History & Physical I have noted the following changes of clinical significance: no changes noted
[2018-12-03] MEDS ORDERED: BACITRACIN INJ 50,000 UNIT VIAL ONE (07:41)
[2018-12-03] MEDS ORDERED: ORTHO JOINT ANESTHETIC ONE (07:41)
[2018-12-03] MEDS ORDERED: POVIDONE-IODINE OP SOLN 30 ML BTL ONE (07:41)
[2018-12-03] MEDS ORDERED: ePHEDrine sulfate 50 MG/ML AMP IV PRN (08:46)
[2018-12-03] MEDS ORDERED: ONDANSETRON INJ 2 MG/ML 2 ML VIAL IV PRN ×2 (08:46→11:40)
[2018-12-03] MEDS ORDERED: ATROPINE SULFATE 0.1 MG/ML 10ML SYR IV PRN (08:46)
[2018-12-03] MEDS ORDERED: HYDROmorphone INJ 1 MG/ML SYRINGE IV PRN (08:46)
[2018-12-03] MEDS ORDERED: POLYETHYLENE (MIRALAX) 17 GM PACK PO PRN (09:00)
--- NOTE | 2018-12-03 09:40 | Operative Report ---
Post Operative Report Pre & Post Diagnosis Operation Date: 12/03/18 08:35 Pre-Op Diagnosis: LEFT KNEE OSTEOARTHRITIS Post-Op Diagnosis: LEFT KNEE OSTEOARTHRITIS Procedure Operation Date: 12/03/18 08:35 Actual Procedures p Left Total Knee Arthroplasty(Left) utilizing Atkins & Nephew non-bloc total knee arthroplasty journey to size 4 femur size 4 tibia size 10 polyethylene size 29 oval patella- Varghese August DO Surgeon Varghese August DO Cruller [employer] Aguila PATTERSON Estimated Blood Loss 5 Findings Consistent with Post-Op Diagnosis Patient presents with severe end-stage tricompartmental degenerative joint disease left knee no response to conservative management is varus alignment subchondral cystic changes marginal osteophytes bone to bone eburnated bone failed all attempts at conservative management presents with a varus aligned knee for left total knee arthroplasty Specimens Bone and cartilage Drains Medium bore Hemovac Complications none Disposition Accompanied Patient To Recovery: No Disposition: Recovery Room Indications Patient presents a 70-year-old white female with severe end-stage tricompartmental degenerative joint disease left knee no response to conserv ative management and physical therapy anti-inflammatories relative rest cortical steroid injections Visco supplementation presents for left total knee arthroplasty failing attempts at relative rest and to conservative management Description of Procedure After proper prepping and draping of the left lower extremity anterior midline incision was made over the region of the extensor extensor mechanism after meticulous hemostasis was obtained and maintained in subcutaneous tissues a medial parapatellar incision was made The patella was subluxed lateralward the medial lateral gutter were cleaned from any hypertrophic synovitis and scar tissue of the distal femoral block was placed and the distal femoral osteotomy cut was made subsequently the chamfers anterior and posterior osteotomy cuts were made utilizing the 4-in-1 block the tibia was subsequently subluxed anteriorward medial and ateral meniscal remnants were excised in their entirety remnants of the anterior and posterior cruciate ligaments were excised in their entirety excellent exposure of the proximal tibia was obtained the tibial osteotomy guide was placed on the proximal tibial osteotomy cut was made once again the knee was irrigated with copious amounts of sterile saline solution the patella was subsequently everted lateralward thickened scar tissue around the patella was removed the patella was subsequently cut utilizing a freehand technique and was drilled prepared for final preparation and placement of patella socially flexion-extension gaps were checked and the equal and symmetric trials were placed to the appropriate femoral and tibial trials with poly-spacer being placed for equal flexion and extension gaps and full range of motion including extension to 0 and flexion to 140 the trial components after having been taken to recovery range of motion was subsequently removed meticulous hemostasis was obtained and maintained subsequently a knee block injection of joint cocktail including ropivacaine 0.5% 150 mg. Bupivacaine 0.5% epinephrine 1-200,030 mL's toradol 30 mg dexamethasone 4 mg ketamine 10 mg clonidine 100 micrograms normal saline solution 30 mg was infiltrated into the soft tissues of the posterior knee medial lateral gutters and periosteal synovium special attention was paid to protect neurovascular structures at all times subsequently trial components having been removed the knee was irrigated with sterile saline solution. debris was removed the proximal tibia was subsequently prepared and was made ready for the placement of the tibial component tibial component was also cemented and tamped into position the femoral component was subsequently placed and cemented in the position the patellar component was subsequently cemented in position because hemostasis once again obtained and maintained wound having been thoroughly irrigated with debridement and debridement lavage was performed as well as a medial parapatellar incision closed with #1 Vicryl in interrupted fashion subcutaneous was closed with #2 Vicryl skin was closed with skin clips. PA-C was necessary for prepping and drapping as well as wound closure of deep fascia Sub cutaneous tissue and skin and was necessary for the case. A sterile compressive dressing was placed patient was taken to recovery in stable condition of report dictated by Mata I attest to the content of the Intraoperative Record and any orders documented therein. Any exceptions are noted below. I attest to the content of the Intraoperative Record and any orders documented therein. Any exceptions are noted below.
--- NOTE | 2018-12-03 10:47 | XRay Report ---
XR knee LT 2V routine CLINICAL HISTORY: Surgical Post Op COMPARISON: Knee radiographs February 26, 2018. FINDINGS: Alignment of the total left knee arthroplasty is anatomic. There is no periprosthetic frac ture or unexpected radiopaque foreign body. Drains are in place. IMPRESSION: Expected findings following total left knee arthroplasty. Electronically signed by: Andrea Bob M.D. 12/03/2018 10:46 AM
--- NOTE | 2018-12-03 11:19 | Anesthesiology Progress Note ---
Date of Service December 03, 2018 Anesthesia Post Procedure Vital Signs Vital Signs: Temp Pulse Pulse Resp BP Pulse Ox 12/03/18 11:10 37.2 C 61 13 138/69 94 12/03/18 11:00 57 L 14 101/74 97 12/03/18 10:50 57 L 14 127/65 98 12/03/18 10:40 60 13 132/76 99 12/03/18 10:30 65 15 120/61 100 12/03/18 10:23 36.5 C 66 14 131/53 L 100 12/03/18 06:42 37 C 65 20 176/86 H 93 Pain Intensity Left Knee: Pain Intensity: 0 Notes Mental Status: alert / awake / arousable Patient Amnestic to Procedure: Yes Nausea / Vomiting: adequately controlled Pain: adequately controlled Airway Patency, RR, SpO2: stable & adequate BP & HR: stable & adequate Hydration State: stable & adequate Neuraxial Anesthesia: was administered and sensory block is resolving Anesthetic Complications: no major complications apparent
[2018-12-03] MEDS ORDERED: METOCLOPRAMIDE HCL INJ 5 MG/ML 2 ML VIAL IV PRN (11:40)
[2018-12-03] MEDS ORDERED: FLUTICASONE PROPIONATE NA SPR 16 GM BTL PRN (11:40)
[2018-12-03] MEDS ORDERED: BISACODYL 10 MG SUPP PR PRN (11:40)
[2018-12-03] MEDS ORDERED: HYDROmorphone INJ 0.5 MG/0.5 ML SYR IV PRN (11:40)
[2018-12-03] MEDS ORDERED: MAGNESIUM HYDROXIDE SUSP 30 ML UDC PO PRN (11:40)
[2018-12-03] MEDS ORDERED: ALBUTEROL HFA 8 GM INHALER INH PRN (11:40)
[2018-12-03] MEDS ORDERED: NALOXONE HCL 0.4 MG/1 ML VIAL/CARP IV PRN (11:40)
[2018-12-03] MEDS: CEFAZOLIN - ALLERGY NOTED TO ORDERED MEDICATION SCH ×2 (12:19→12:20)
[2018-12-03] MEDS: CELEBREX - ALLERGY NOTED TO ORDERED MEDICATION SCH ×2 (12:22→12:23)
[2018-12-03] MEDS: SODIUM CHLORIDE 0.9% 1000ML 1,000 ML IV SCH ×2 (12:47→23:08)
[2018-12-03] MEDS: RESTASIS: ORDER AWAITING ACTION SCH (17:18)
[2018-12-03] MEDS: ACETAMINOPHEN 500 MG TAB PO SCH (17:19)
[2018-12-03] MEDS: CLINDAMYCIN 600 MG in DEXTROSE 5% 50 ML IV SCH (17:28)
[2018-12-03] MEDS: SENNA 8.6 MG TAB PO SCH (21:15)
[2018-12-03] MEDS: CeleBREX 200 MG CAP PO SCH (21:16)
[2018-12-03] MEDS: DOCUSATE SODIUM 100 MG CAP PO SCH (21:16)
[2018-12-03] MEDS: ASPIRIN 81 MG ECTAB PO SCH (21:16)
[2018-12-03] MEDS: LATANOPROST 0.005% OP SOLN 2.5 ML BTL OP SCH (21:17)
[2018-12-03] MEDS: ALPRAZolam 0.5 MG TABLET PO PRN (21:36)
[2018-12-04] MEDS: CLINDAMYCIN 600 MG in DEXTROSE 5% 50 ML IV SCH (00:12)
[2018-12-04] MEDS: OXYCODONE HCL IR 5 MG TAB (IMMEDIATE RELEASE) PO PRN ×4 (00:13→18:10)
[2018-12-04] MEDS: RESTASIS: ORDER AWAITING ACTION SCH ×2 (02:44→08:44)
[2018-12-04 05:57] LABS: Hematocrit (blood only) 26.4 % (37-47); Hemoglobin 8.9 g/dL (12.0-16.0); Mean Corpuscular Hgb Conc 33.7 g/dL (32-36); Mean Platelet Volume 9.4 fL (7.4-10.4); Platelet Count 321 K/uL (130-400); RDW Coefficient of Variation 12.9 % (11.5-14.5); RDW Standard Deviation 43.6 fL (36.4-46.3); Red Blood Count 2.87 M/uL (4.2-5.4); White Blood Count 15.58 K/uL (4.8-10.8)
[2018-12-04] MEDS: ACETAMINOPHEN 500 MG TAB PO SCH ×3 (05:58→21:52)
[2018-12-04 06:30] LABS: BUN Creatinine Ratio 13.3 (10-20); Calcium 7.9 mg/dl (8.5-10.1); Creatinine Clr Calc Pharmacy 36.5 ml/min; Est GFR (African American) 54.5; Potassium 4.3 mmol/L (3.5-5.1)
--- NOTE | 2018-12-04 06:52 | Orthopedic Progress Note ---
Date of Service December 04, 2018 Assessment & Plan (1) Status post total left knee replacement: POD #1 s/p Left TKA pt/ot dvt proph with [facility]/SCD/ASA plan for d/c home with home health when stable Subjective POD #1 s/p left tka denies CP/SOB denies fever/chills denies N/V Physical Exam Vital Signs (Past 24 Hours): Last Vital Signs Temp 36.3 C L 12/04/18 03:13 Pulse 54 L 12/04/18 03:13 Resp 15 12/04/18 03:13 BP 161/72 H 12/04/18 04:48 Pulse Ox 96 12/04/18 03:13 Constitutional: WD/WN, vitals as above no acute distress Musculoskeletal: left leg: NVDI, calf SNT, negative maya sign. DP palpable, able to wiggle toes/ankle movement without difficulty. dressing clean dry and intact. Vital Signs Temp 36.3 C L 12/04/18 03:13 Pulse 54 L 12/04/18 03:13 Resp 15 12/04/18 03:13 BP 161/72 H 12/04/18 04:48 Pulse Ox 96 12/04/18 03:13 Intake & Output 12/03/18 12/03/18 12/04/18 06:59 18:59 06:59 Intake Total 1878 / 3792.000 1914.000 / 3792.00 0 Output Total 856 / 1956 1100 / 1956 Balance 1022 / 1836.000 814.000 / 1836.000 Weight 71.532 kg 71.532 kg Intake: IV 1328 / 3002.000 1674.000 / 3002.00 0 Cleocin 600 mg In D5w 50 ml @ 54 / 108 54 / 108 100 mls/hr IV Q8H FRANCIA Rx#: [id number] CLEOCIN 600 mg In 54 ml @ 100 54 / 54 mls/hr IV PREO P FRANCIA Rx#: [id number] Lr 1,000 ml @ 15 mls/hr IV . 1000 / 1000 Q24H FRANCIA Rx#:[id number] Nss 1000ML 1,0 00 ml @ 100 mls/ 1620.000 / 1620.00 0 hr IV .Q10H SC H Rx#:[id number] Cyklokapron 1, 000 mg In Sodium 220 / 220 Chloride 100 m l @ 660 mls/hr IV 0630 [facility] Rx#:[id number] IV Perioperative 550 / 550 Oral 240 / 240 Output: Urine 800 / 1600 800 / 1600 Estimated Blood Loss 5 / 5 Drain Output 50 / 350 300 / 350 Left Knee Hemo vac 50 / 350 300 / 350 # Bowel Movement s Results & Data Laboratory Results Laboratory Results WBC 15.58 K/uL (4.8-10.8) H 12/04/18 05:43 RBC 2.87 M/uL (4.2-5.4) L 12/04/18 05:43 Hgb 8.9 g/dL (12.0-16.0) L 12/04/18 05:43 Hct 26.4 % (37-47) L 12/04/18 05:43 MCV 92.0 fL (80-100) 12/04/18 05:43 MCH 31.0 pg (25-34) 12/04/18 05:43 MCHC 33.7 g/dL (32-36) 12/04/18 05:43 RDW Std Deviation 43.6 fL (36.4-46.3) 12/04/18 05:43 RDW Coeff of Mariely 12.9 % (11.5-14.5) 12/04/18 05:43 Plt Count 321 K/uL (130-400) 12/04/18 05:43 MPV 9.4 fL (7.4-10.4) 12/04/18 05:43 Immature Gran % (Auto) 0.1 % 11/08/18 16:00 Neut % (Auto) 62.0 % 11/08/18 16:00 Lymph % (Auto) 29.8 % 11/08/18 16:00 [place] % (Auto) 5.3 % 11/08/18 16:00 Eos % (Auto) 2.3 % 11/08/18 16:00 Baso % (Auto) 0.5 % 11/08/18 16:00 Immature Gran # (Auto) 0.01 K/uL (0.00-0.02) 11/08/18 16:00 Neut # (Auto) 6.39 K/uL (1.4-6.5) 11/08/18 16:00 Lymph # (Auto) 3.07 K/uL (1.2-3.4) 11/08/18 16:00 [place] # (Auto) 0.55 K/uL (0.11-0.59) 11/08/18 16:00 Eos # (Auto) 0.24 K/uL (0-0.5) 11/08/18 16:00 Baso # (Auto) 0.05 K/uL (0-0.2) 11/08/18 16:00 PT 10.1 Seconds (9.0-12.0) 11/08/18 16:00 INR 1.0 (0.9-1.1) 11/08/18 16:00 APTT 28.9 Seconds (21.0-31.0) 11/08/18 16:00 PTT Ratio 1.1 11/08/18 16:00 Sodium 136 mmol/L (136-145) 12/04/18 05:43 Potassium 4.3 mmol/L (3.5-5.1) 12/04/18 05:43 Chloride 105 mmol/L (98-107) 12/04/18 05:43 Carbon Dioxide 24 mmol/L (21-32) 12/04/18 05:43 Anion Gap 7.0 (3-11) 12/04/18 05:43 BUN 15 mg/dl (7-18) 12/04/18 05:43 Creatinine 1.12 mg/dl (0.6-1.2) 12/04/18 05:43 Est Cr Clr Drug Dosing 36.5 ml/min 12/04/18 05:43 Est GFR ( Amer) 54.5 12/04/18 05:43 Est GFR (Non-Af Amer) 47.0 12/04/18 05:43 BUN/Creatinine Ratio 13.3 (10-20) 12/04/18 05:43 Glucose 138 mg/dl (70-99) H 12/04/18 05:43 POC Glucose 104 (70-99) H 12/03/18 06:44 Estimat Average Glucose 123 mg/dl 11/08/18 16:00 Hemoglobin A1c 5.9 % (4.5-5.6) H 11/08/18 16:00 Calcium 7.9 mg/dl (8.5-10.1) L 12/04/18 05:43 Albumin 3.8 gm/dl (3.4-5.0) 11/08/18 16:00 Urine Color Yellow 11/08/18 16:00 Urine Appearance Clear (Clear) 11/08/18 16:00 Urine pH 6.0 (4.5-7.5) 11/08/18 16:00 Ur Specific [place] 1.010 (1.000-1.030) 11/08/18 16:00 Urine Protein Negative (Negative) 11/08/18 16:00 Urine Glucose (UA) Negative (Negative) 11/08/18 16:00 Urine Ketones Negative (Negative) 11/08/18 16:00 Urine Blood Negative (Negative) 11/08/18 16:00 Urine Nitrite Negative (Negative) 11/08/18 16:00 Urine Bilirubin Negative (Negative) 11/08/18 16:00 Urine Urobilinogen Negative (Negative) 11/08/18 16:00 Ur Leukocyte Esterase 2+ (Negative) H 11/08/18 16:00 Urine WBC (Auto) 10-30 /hpf (0-5) H 11/08/18 16:00 Urine RBC (Auto) 0-4 /hpf (0-4) 11/08/18 16:00 U Hyaline Cast (Auto) 1-5 /lpf (0-5) 11/08/18 16:00 U Epithel Cells (Auto) >30 /lpf (0-5) H 11/08/18 16:00 Urine Bacteria (Auto) Negative (Negative) 11/08/18 16:00 Blood Type O Positive 11/08/18 16:00 Antibody Screen NEGATIVE 11/08/18 16:00 Diagnostic Findings XR knee LT 2V routine CLINICAL HISTORY: Surgical Post Op COMPARISON: Knee radiographs February 26, 2018. FINDINGS: Alignment of the total left knee arthroplasty is anatomic. There is no periprosthetic fracture or unexpected radiopaque foreign body. Drains are in place. IMPRESSION: Expected findings following total left knee arthroplasty.
--- NOTE | 2018-12-04 07:55 | Anesthesiology Progress Note ---
Date of Service December 04, 2018 Anesthesia Post Procedure Vital Signs Vital Signs: Temp Pulse Pulse Resp BP BP Pulse Ox 12/04/18 07:11 36.7 C 64 16 138/63 95 12/04/18 04:48 161/72 H 12/04/18 03:13 36.3 C L 54 L 15 178/76 H 173/72 H 96 12/04/18 01:01 162/74 H 12/03/18 23:18 36.4 C L 57 L 17 175/72 H 95 12/03/18 20:00 36.6 C 69 17 158/68 H 94 12/03/18 15:55 95 12/03/18 15:23 36.5 C 55 L 16 144/72 H 98 12/03/18 14:23 64 16 122/71 99 12/03/18 13:28 36.8 C 67 17 129/63 94 12/03/18 12:23 36.4 C L 63 19 122/66 97 12/03/18 11:50 64 16 125/64 97 12/03/18 11:44 36.3 C L 63 16 130/67 93 12/03/18 11:10 37.2 C 61 13 138/69 94 12/03/18 11:00 57 L 14 101/74 97 12/03/18 10:50 57 L 14 127/65 98 12/03/18 10:40 60 13 132/76 99 12/03/18 10:30 65 15 120/61 100 12/03/18 10:23 36.5 C 66 14 131/53 L 100 Pain Intensity Left Knee: Pain Intensity: 5 Notes Mental Status: alert / awake / arousable and participated in evaluation Patient Amnestic to Procedure: Yes Nausea / Vomiting: adequately controlled Pain: adequately controlled Airway Patency, RR, SpO2: stable & adequate BP & HR: stable & adequate Hydration State: stable & adequate Neuraxial Anesthesia: was administered and sensory block resolved Anesthetic Complications: no major complications apparent
[2018-12-04] MEDS: DOCUSATE SODIUM 100 MG CAP PO SCH ×2 (08:42→20:30)
[2018-12-04] MEDS: CeleBREX 200 MG CAP PO SCH ×2 (08:43→20:31)
[2018-12-04] MEDS: MULTIVITAMIN TAB PO SCH (08:43)
[2018-12-04] MEDS: dilTIAZem HCL 120 MG CAPCR PO SCH (08:43)
[2018-12-04] MEDS: PARoxetine HCl 20 MG TAB PO SCH (08:43)
[2018-12-04] MEDS: PANTOprazole 40 MG TAB PO SCH (08:43)
[2018-12-04] MEDS: ASPIRIN 81 MG ECTAB PO SCH ×2 (08:44→20:31)
[2018-12-04] MEDS: cycloSPORINE (RESTASIS) OP SCH ×2 (10:35→20:31)
[2018-12-04] MEDS: ALPRAZolam 0.5 MG TABLET PO PRN ×2 (20:29→21:52)
[2018-12-04] MEDS: SENNA 8.6 MG TAB PO SCH (20:30)
[2018-12-04] MEDS: LATANOPROST 0.005% OP SOLN 2.5 ML BTL OP SCH (20:31)
[2018-12-05] MEDS: ACETAMINOPHEN 500 MG TAB PO SCH ×2 (05:20→12:55)
[2018-12-05 06:15] LABS: Basophils # (auto) 0.02 K/uL (0-0.2); Basophils % (auto) 0.1 %; Eosinophils # (auto) 0.08 K/uL (0-0.5); Eosinophils % (auto) 0.6 %; Hematocrit (blood only) 24.4 % (37-47); Hemoglobin 8.3 g/dL (12.0-16.0); Immature Granulocytes # (auto) 0.03 K/uL (0.00-0.02); Immature Granulocytes % (auto) 0.2 %; Lymphocytes # (auto) 2.37 K/uL (1.2-3.4); Lymphocytes % (auto) 17.4 %; Mean Corpuscular Volume 92.8 fL (80-100); Mean Platelet Volume 9.8 fL (7.4-10.4); Monocytes # (auto) 1.35 K/uL (0.11-0.59); Monocytes % (auto) 9.9 %; Neutrophils # (auto) 9.74 K/uL (1.4-6.5); Neutrophils % (auto) 71.8 %; Platelet Count 329 K/uL (130-400); RDW Coefficient of Variation 13.4 % (11.5-14.5); RDW Standard Deviation 45.2 fL (36.4-46.3); Red Blood Count 2.63 M/uL (4.2-5.4); White Blood Count 13.59 K/uL (4.8-10.8)
[2018-12-05 06:50] LABS: RBC Morphology Unremarkable
[2018-12-05] MEDS: OXYCODONE HCL IR 5 MG TAB (IMMEDIATE RELEASE) PO PRN ×2 (07:06→12:55)
[2018-12-05] MEDS: PARoxetine HCl 20 MG TAB PO SCH (07:06)
[2018-12-05] MEDS: PANTOprazole 40 MG TAB PO SCH (07:07)
[2018-12-05] MEDS: dilTIAZem HCL 120 MG CAPCR PO SCH (07:07)
[2018-12-05] MEDS: DOCUSATE SODIUM 100 MG CAP PO SCH (07:07)
[2018-12-05] MEDS: ASPIRIN 81 MG ECTAB PO SCH (07:07)
[2018-12-05] MEDS: MULTIVITAMIN TAB PO SCH (07:07)
[2018-12-05] MEDS: cycloSPORINE (RESTASIS) OP SCH (07:09)
[2018-12-05] MEDS: CeleBREX 200 MG CAP PO SCH (08:00)
--- NOTE | 2018-12-05 09:11 | Orthopedic Progress Note ---
Date of Service December 05, 2018 Assessment & Plan (1) Status post total left knee replacement: 78 yo female stable POD #1 s/p left TKA 1. Med management 2. DVT prophylaxis- ASA, SCDs 3. PT/OT 4. D/C planning- home w/ HH Subjective Pt in chair, therapist present, pain reasonably well controlled, denies complaints Physical Exam Vital Signs (Past 24 Hours): Last Vital Signs Temp 36.7 C 12/05/18 06:02 Pulse 67 12/05/18 06:02 Resp 16 12/05/18 06:02 BP 168/65 H 12/05/18 06:02 Pulse Ox 93 12/05/18 06:02 Physical Exam: Dressing in place, calf soft, toes mobile, NVI Results & Data Laboratory Results 12/05/18 Range/Units 05:39 WBC 13.59 H (4.8-10.8) K/uL RBC 2.63 L (4.2-5.4) M/uL Hgb 8.3 L (12.0-16.0) g/dL Hct 24.4 L (37-47) % MCV 92.8 (80-100) fL MCH 31.6 (25-34) pg MCHC 34.0 (32-36) g/dL RDW Std Deviation 45.2 (36.4-46.3) fL RDW Coeff of Mariely 13.4 (11.5-14.5) % Plt Count 329 (130-400) K/uL MPV 9.8 (7.4-10.4) fL Immature Gran % (Auto) 0.2 % Neut % (Auto) 71.8 % Lymph % (Auto) 17.4 % [place] % (Auto) 9.9 % Eos % (Auto) 0.6 % Baso % (Auto) 0.1 % Immature Gran # (Auto) 0.03 H (0.00-0.02) K/uL Neut # (Auto) 9.74 H (1.4-6.5) K/uL Lymph # (Auto) 2.37 (1.2-3.4) K/uL [place] # (Auto) 1.35 H (0.11-0.59) K/uL Eos # (Auto) 0.08 (0-0.5) K/uL Baso # (Auto) 0.02 (0-0.2) K/uL RBC Morphology Unremarkable
--- NOTE | 2018-12-06 10:59 | Discharge Summary ---
Date of Service December 11, 2018 Admission HPI Per Admitting Provider Ms Inman is a 78 year old female who is here for a follow up of left knee pain, presents for pre op evaluation prior to left total knee replacement. She complains of pain, crepitus and instability on the left side. Patient is here today for pre-op appt for left TKA for 12/03/[address] August at [facility]. Patient's PCP is Dr. Moses. She has a walker at home. She has cortisone and visco injections. She is taking OTC pain medication Tylenol ES as needed. She states that the symptoms have been chronic non-traumatic. The symptoms occur intermittently. Currently the patient states that the symptoms are moderate-sev ere. The pain is described as aching, throbbing and burning. The symptoms occur intermittently. She rates her current pain as 7/10. The symptoms are aggravated by ascending stairs, descending stairs, daily activities, walking and weight bearing. Ember states that the symptoms are relieved by no specific activity. In addition to left knee pain the patient is also experiencing joint pain, instability and limping. Discharge Data Consultations 12/03/18 11:40 Consult Case Management - Discharge Planning Routine Procedures Performed Operation Date: 12/03/18 08:35 Actual Procedures p Left Total Knee Arthroplasty(Left) - Varghese August DO
--- NOTE | 2018-12-10 03:08 | Discharge Summary ---
DISCHARGE DIAGNOSIS: Degenerative joint disease, left knee. SECONDARY DIAGNOSES: Anxiety, asthma, bronchitis, history of cardiac murmur, depression, gastroesophageal reflux disease, glaucoma, hyperlipidemia, hypertension, nausea after administration of anesthetic agent, osteoarthritis. CONSULTS: None. COMPLICATIONS: None. PROCEDURES: Left total knee arthroplasty performed by Dr. August on 12/03/2018. BRIEF HISTORY: As dictated in the history and physical. HOSPITAL SUMMARY: The patient was admitted on the above-noted date had the above-noted surgery performed, which she tolerated well. On the first postoperative day, the patient was without complaints and denied shortness of breath, chest pain, fever, nausea and vomiting. Vital signs are stable. She was afebrile. Dressings were clean, dry and intact. Calves were soft, nontender. Neurovascularly intact. Toes were mobile and she was started on physical therapy protocol and continued on DVT prophylaxis and pain management. By her second postoperative day, she was continuing to remain stable. She was seen sitting in her chair at the bedside. Therapy was currently going over instructions with her. Her pain was reasonably well controlled. She had no other complaints. Vital signs were stable. She is afebrile. Dressings were then placed. Calves were soft. Toes were mobile. Neurovascularly intact. She was progressing with her physical therapy and it was felt she could be discharged to home with home health services on 12/05/2018. For further review, please see chart. LABORATORY AND X-RAY DATA: As per chart. DISCHARGE INSTRUCTIONS: The patient was discharged home in satisfactory condition on 12/05/2018. DIET: Regular. ACTIVITY: Weightbearing as tolerated left lower extremity with walker. Follow TK instruction sheets and special care instructions as noted. Follow up with Dr. August in 2 weeks. The patient to call for appointment if one has not been made for you. DISCHARGE MEDICATIONS: Aspirin 81 mg p.o. b.i.d., oxycodone 5-10 mg p.o. q. 8 hours. Resume home meds as listed.
== END 2018-12-05 13:29 | disposition home health service (06) | DRG 470 ==
LOC: ASU 06:14 → 3E 10:30
DX: M17.12 Unilateral primary osteoarthritis, left knee; E66.9 Obesity, unspecified; K21.9 Gastro-esophageal reflux disease without esophagitis; Z79.899 Other long term (current) drug therapy; H40.9 Unspecified glaucoma; J45.909 Unspecified asthma, uncomplicated; F32.9 Major depressive disorder, single episode, unspecified; Z68.30 Body mass index [BMI] 30.0-30.9, adult; Z88.6 Allergy status to analgesic agent; F41.9 Anxiety disorder, unspecified; Z88.5 Allergy status to narcotic agent; F17.210 Nicotine dependence, cigarettes, uncomplicated; I10 Essential (primary) hypertension; Z88.1 Allergy status to other antibiotic agents; Z91.018 Allergy to other foods; Z91.013 Allergy to seafood